=== PATIENT | female | born 1935 | race American Indian/Alaskan Native ===

== ENCOUNTER 2017-03-22 23:11 | Emergency (ER) | payer MEDICARE ==
[2017-03-23 00:06] LABS: Basophils % (Auto) 0.6 % (0.0-1.8); Eosinophils % (Auto) 0.1 % (0.0-4.3); Hematocrit 39.6 % (30.3-42.9); Hemoglobin 12.7 gm/dl (10.1-14.3); Mean Corpuscular HGB Conc 32 % (30-34); Mean Corpuscular Volume 80 fl (79-97); Platelet Count 257 K/mm3 (140-440); Red Blood Count 4.96 M/mm3 (3.65-5.03); Red Cell Distribution Width 14.1 % (13.2-15.2); White Blood Count 11.9 K/mm3 (4.5-11.0)
[2017-03-23 00:08] LABS: Mean Corpuscular Hemoglobin 26 pg (28-32)
[2017-03-23 00:23] LABS: BUN/Creatinine Ratio 21.81; Blood Urea Nitrogen 24 mg/dL (7-17); Calcium 9.5 mg/dL (8.4-10.2); Carbon Dioxide 25 mmol/L (22-30); Chloride 103.9 mmol/L (98-107); Glucose 109 mg/dL (65-100); Potassium 4.5 mmol/L (3.6-5.0); Sodium 142 mmol/L (137-145)
[2017-03-23 00:24] LABS: Anion Gap 18 mmol/L
[2017-03-23 02:34] LABS: Bilirubin,Urine NEG (Negative); Blood,Urine NEG (Negative); Ketones,Urine NEG (Negative); Leukocyte Esterase,Urine MOD (Negative); Mucus,Urine FEW /HPF; Nitrite,Urine NEG (Negative); Protein,Urine <15 mg/dL mg/dL (Negative); Urobilinogen,Urine < 2.0 mg/dL (<2.0)
[2017-03-23] MEDS ORDERED: ULTRAM PO ONE (02:43)
--- NOTE | 2017-03-23 02:43 | Emergency Department Report ---
ED General Adult HPI - General Chief complaint: Dizziness Stated complaint: EYES BLEEDING/LIGHT HEADED/SHARP PAIN IN HEAD Time Seen by Provider: 03/23/17 02:30 Source: patient, RN notes reviewed, old records reviewed Mode of arrival: Ambulatory Limitations: No Limitations - History of Present Illness Initial comments: This is an 81-year-old female. She is previously unknown to me. Her primary care doctor is Dr. Beth Torres The patient presents to the ER with a complaint of bilateral erythema and her conjunctiva, right-sided periorbital ecchymosis, nonspecific headache and dizziness. Patient reports chronic headaches, her headaches today are not new, worsening or different from her typical headaches. She reports that she was stung in her right temporal region by an insect a few days ago, and shortly thereafter developed "bloodshot eyes." Her PCP presumptively diagnosed her with an allergic reaction. The patient denies neck pain, neck stiffness, ataxia , chest pain, shortness of breath, irritative and obstructive urinary symptoms. There is no pain with chewing or swallowing food, and patient describes nonspecific blurry vision, which is chronic, she reports she is not wearing her glasses at this time, but she reports that the headache is not different from her typical headache. Her symptoms have been constant and on and off for the past week, have no exacerbating or relieving factors. -: Gradual Location: head, eyes Radiation: non-radiation Severity scale (0 -10): 4 Consistency: intermittent Improves with: none Worsens with: none Associated Symptoms: headaches. denies: confusion, chest pain, cough, loss of appetite, malaise, shortness of breath, syncope, weakness - Related Data Previous Rx's Medication Instructions Recorded Last Taken Type Butalb/Acetamin/Caff 50-325-40 1 tab PO Q8HR PRN #20 tablet 07/28/16 Unknown Rx [Fioricet] Meclizine [Antivert] 25 mg PO TID PRN #20 tablet 07/28/16 Unknown Rx Ondansetron [Zofran ODT TAB] 8 mg PO Q8HR #20 tab.rapdis 07/28/16 Unknown Rx Sulfamethoxazole/Trimethoprim 1 each PO BID #6 tablet 07/28/16 Unknown Rx [Bactrim DS TAB] traMADol [Ultram 50 MG tab] 50 mg PO Q6HR PRN #14 tablet 03/23/17 Unknown Rx Allergies Allergy/AdvReac Type Severity Reaction Status Date / Time aspirin Allergy Unknown Verified 02/21/16 08:34 ED Review of Systems ROS: Stated complaint: EYES BLEEDING/LIGHT HEADED/SHARP PAIN IN HEAD Other details as noted in HPI Constitutional: malaise. denies: fever Eyes: denies: eye pain ENT: denies: throat pain Respiratory: denies: cough Cardiovascular: denies: chest pain Gastrointestinal: denies: abdominal pain Genitourinary: denies: urgency Musculoskeletal: myalgia Skin: lesions Neurological: headache, weakness Psychiatric: denies: anxiety ED Past Medical Hx - Past Medical History Previous Medical History?: Yes Hx Hypertension: Yes Hx Diabetes: Yes Additional medical history: nervous stomach - Surgical History Past Surgical History?: Yes Additional Surgical History: partial hysterectomy. right knee surgery - Social History Smoking Status: Never Smoker Substance Use Type: Prescribed - Medications Home Medications: Home Medications Medication Instructions Recorded Confirmed Last Taken Type Butalb/Acetamin/Caff 50-325-40 1 tab PO Q8HR PRN #20 tablet 07/28/16 Unknown Rx [Fioricet] Meclizine [Antivert] 25 mg PO TID PRN #20 tablet 07/28/16 Unknown Rx Ondansetron [Zofran ODT TAB] 8 mg PO Q8HR #20 tab.rapdis 07/28/16 Unknown Rx Sulfamethoxazole/Trimethoprim 1 each PO BID #6 tablet 07/28/16 Unknown Rx [Bactrim DS TAB] traMADol [Ultram 50 MG tab] 50 mg PO Q6HR PRN #14 tablet 03/23/17 Unknown Rx ED Physical Exam - General Limitations: No Limitations General appearance: alert, in no apparent distress - Head Head exam: Present: atraumatic, normocephalic, other (no temporal tenderness. no vesicles noted) - Eye Eye exam: Present: PERRL (b/l arcus senilis), EOMI, conjunctival injection, other (visual acuity intact to finger counting, color perception, reading at a close distance). Absent: nystagmus - ENT ENT exam: Present: normal exam, normal orophraynx, mucous membranes moist, normal external ear exam - Neck Neck exam: Present: normal inspection, full ROM - Respiratory Respiratory exam: Present: normal lung sounds bilaterally. Absent: respiratory distress, wheezes, rales, rhonchi, stridor, chest wall tenderness, accessory muscle use, decreased breath sounds, prolonged expiratory - Cardiovascular Cardiovascular Exam: Present: regular rate, normal rhythm, normal heart sounds. Absent: bradycardia, tachycardia, irregular rhythm, systolic murmur, diastolic murmur, rubs, gallop - GI/Abdominal GI/Abdominal exam: Present: soft, normal bowel sounds. Absent: distended, tenderness, guarding, rebound, rigid, pulsatile mass - Extremities Exam Extremities exam: Present: normal inspection, full ROM, normal capillary refill. Absent: pedal edema, joint swelling, calf tenderness - Back Exam Back exam: Present: normal inspection, full ROM. Absent: tenderness, CVA tenderness (R), paraspinal tenderness - Neurological Exam Neurological exam: Present: alert, oriented X3, normal gait (ambulates with a steady gait with a one-person assist. There is no past pointing.), other ( Extraocular movements intact. Tongue midline. No facial droop. Facial sensation intact to light touch in the V1, V2, V3 distribution bilaterally. 5 and 5 strength in 4 extremities.. Sensation is intact to light touch in 4 extremities.). Absent: motor sensory deficit - Psychiatric Psychiatric exam: Present: normal affect, normal mood - Skin Skin exam: Present: warm, dry, intact, normal color. Absent: rash ED Course Vital Signs 03/22/17 03/23/17 03/23/17 23:21 02:09 03:59 Temperature 98.5 F 98.2 F Pulse Rate 74 69 Respiratory 18 14 Rate Blood Pressure 154/75 Blood Pressure 154/75 159/79 [Right] O2 Sat by Pulse 100 99 99 Oximetry 03/23/17 04:35 Temperature Pulse Rate 63 Respiratory 12 Rate Blood Pressure Blood Pressure 157/82 [Right] O2 Sat by Pulse 97 Oximetry ED Medical Decision Making - Lab Data Result diagrams: 03/22/17 23:37 03/22/17 23:37 Vital Signs 03/22/17 03/23/17 03/23/17 23:21 02:09 03:59 Temperature 98.5 F 98.2 F Pulse Rate 74 69 Respiratory 18 14 Rate Blood Pressure 154/75 Blood Pressure 154/75 159/79 [Right] O2 Sat by Pulse 100 99 99 Oximetry 03/23/17 04:35 Temperature Pulse Rate 63 Respiratory 12 Rate Blood Pressure Blood Pressure 157/82 [Right] O2 Sat by Pulse 97 Oximetry Labs 03/22/17 03/22/17 03/23/17 23:37 23:37 02:09 WBC 11.9 H RBC 4.96 Hgb 12.7 Hct 39.6 MCV 80 MCH 26 L MCHC 32 RDW 14.1 Plt Count 257 Lymph % (Auto) 20.7 Clinch % (Auto) 4.9 Eos % (Auto) 0.1 Baso % (Auto) 0.6 Lymph # 2.5 Clinch # 0.6 Eos # 0.0 Baso # 0.1 Seg Neutrophils % 73.7 H Seg Neutrophils # 8.7 H PT INR APTT Sodium 142 Potassium 4.5 Chloride 103.9 Carbon Dioxide 25 Anion Gap 18 BUN 24 H Creatinine 1.1 Estimated GFR 58 BUN/Creatinine Ratio 21.81 Glucose 109 H Calcium 9.5 Magnesium Total Bilirubin Direct Bilirubin Indirect Bilirubin AST ALT Alkaline Phosphatase Total Creatine Kinase Troponin T < 0.010 Total Protein Albumin Albumin/Globulin Ratio TSH Urine Color Yellow Urine Turbidity Clear Urine pH 5.0 Ur Specific [place] 1.021 Urine Protein <15 mg/dl Urine Glucose (UA) Neg Urine Ketones Neg Urine Blood Neg Urine Nitrite Neg Urine Bilirubin Neg Urine Urobilinogen < 2.0 Ur Leukocyte Esterase Mod Urine WBC (Auto) 21.0 H Urine RBC (Auto) 3.0 U Epithel Cells (Auto) 5.0 Hyaline Casts 4 Urine Mucus Few 03/23/17 03/23/17 03/23/17 03:49 03:49 03:49 WBC RBC Hgb Hct MCV MCH MCHC RDW Plt Count Lymph % (Auto) Clinch % (Auto) Eos % (Auto) Baso % (Auto) Lymph # Clinch # Eos # Baso # Seg Neutrophils % Seg Neutrophils # PT 14.0 INR 1.09 APTT 30.2 Sodium Potassium Chloride Carbon Dioxide Anion Gap BUN Creatinine Estimated GFR BUN/Creatinine Ratio Glucose Calcium Magnesium 1.80 Total Bilirubin 0.30 Direct Bilirubin < 0.2 Indirect Bilirubin 0.1 AST 23 ALT 29 Alkaline Phosphatase 99 Total Creatine Kinase 68 Troponin T Total Protein 6.6 Albumin 3.6 L Albumin/Globulin Ratio 1.2 TSH 0.760 Urine Color Urine Turbidity Urine pH Ur Specific [place] Urine Protein Urine Glucose (UA) Urine Ketones Urine Blood Urine Nitrite Urine Bilirubin Urine Urobilinogen Ur Leukocyte Esterase Urine WBC (Auto) Urine RBC (Auto) U Epithel Cells (Auto) Hyaline Casts Urine Mucus - EKG Data -: EKG Interpreted by Me EKG shows normal: sinus rhythm Rate: normal - EKG Data 03/23/17 05:06 Normal sinus, 60 beats per minute, borderline rightward axis, poor R-wave progression, not consistent with STEMI, appears to have nonspecific changes when compared to prior EKG from 2016 - Radiology Data Radiology results: report reviewed, image reviewed interpreted by me: X-ray of the chest is negative Noncontrast CT scan of the brain is negative for acute findings - Medical Decision Making Differential diagnosis: Allergic conjunctivitis, intracranial lesion, migraine headache, tension headache, cluster headache, general medical evaluation Assessment and plan: 81-year-old female with multiple complaints, including bloody eyes/bloody conjunctiva which are atraumatic and associated with a recent insect sting, nonspecific dizziness, nonspecific headache. There is no temporal tenderness. There is no claudication. There is no severe loss of visual acuity. Think temporal arteritis is unlikely. Patient reports chronic headaches. Walks with a one-person assist. Has a GCS of 15, and an NIH score of 0. Urinalysis appreciated, does not have any urinary symptoms, think UTI is unlikely. There does not appear to be any emergent condition at this time, and the patient is medically suitable to follow-up in outpatient scarfer operator and her primary care doctor. Critical care attestation.: If time is entered above; I have spent that time in minutes in the direct care of this critically ill patient, excluding procedure time. ED Disposition Clinical Impression: Headache, Conjunctival injection Disposition: DC-01 TO HOME OR SELFCARE Is pt being admited?: No Does the pt Need Aspirin: No Condition: Stable Additional Instructions: Continue current outpatient medications. Follow-up with your primary care doctor within the next 2 weeks. Follow up with an scarfer operator within the next 3-[address] Mao is a local ophthalmology specialist. Return to the ER right away with new pain, worsened pain, migration of pain, loss of vision, confusion, intractable nausea or vomiting, inability to tolerate liquid feeds. Avoid exposures to stinging insects. Referrals: PRIMARY CARE, [Primary Care Provider] - 3-5 Days ARA MAO MD [Staff Physician] - 3-5 Days BETH TORRES MD [Staff Physician] - 3-5 Days
[2017-03-23 04:20] LABS: INR 1.09 (0.87-1.13)
[2017-03-23 04:21] LABS: Partial Thromboplastin Time 30.2 Sec. (24.2-36.6)
[2017-03-23 04:27] LABS: Alanine Aminotransferase 29 units/L (7-56); Albumin 3.6 g/dL (3.9-5); Albumin/Globulin Ratio 1.2 %; Alkaline Phosphatase 99 units/L (35-129); Creatine Kinase 68 units/L (30-135); Total Protein 6.6 g/dL (6.3-8.2)
[2017-03-23 04:35] LABS: Bilirubin,Direct < 0.2 mg/dL (0-0.2); Bilirubin,Indirect 0.1 mg/dL
[2017-03-23 04:38] VITALS: BP 157/82
--- NOTE | 2017-03-23 05:03 | Cat Scan Report ---
FINAL REPORT PROCEDURE: CT HEAD/BRAIN WO CON TECHNIQUE: Computerized tomography of the head was performed without contrast material. HISTORY: headache COMPARISON: July 28, 2016 FINDINGS: Skull and scalp: Normal. Paranasal sinuses: Normal. Ventricles and subarachnoid spaces: There is moderate central and cortical atrophy. There is no hydrocephalus or asymmetry.. Cerebrum: No evidence of hemorrhage, acute infarction or mass . Cerebellum and brainstem: No evidence of hemorrhage, acute infarction or mass. Vasculature: There is calcified plaque in the cavernous portions of the internal carotid arteries.. Comments: None. IMPRESSION: There is no acute intracranial abnormality.
--- NOTE | 2017-03-23 07:44 | XRay Report ---
ROUTINE CHEST, TWO VIEWS: HISTORY: Dizziness. The trachea, heart, mediastinal contour, lung lowery and bony thorax are unremarkable. IMPRESSION: Unremarkable chest x-ray.
== END 2017-03-23 05:40 | disposition home or self-care (01) ==
LOC: ED 23:11
DX: R51 Headache (principal); I10 Essential (primary) hypertension; E11.9 Type 2 diabetes mellitus without complications
CPT/HCPCS: 36415; 70450; 71020; 80048; 80074; 81001; 82550; 83735; 84443; 84484; 85025; 85610; 85730; 87086; 93005; 93010

== ENCOUNTER 2019-02-06 13:21 | Emergency (ER) | payer MEDICARE ==
--- NOTE | 2019-02-06 13:28 | Emergency Department Report ---
Blank Doc - Documentation Documentation: This is a 83-year-old female that presents with itching and redness and believes was bite by bees. Denies any facial swelling or SOB. Denies any difficulty breathing. This initial assessment/diagnostic orders/clinical plan/treatment(s) is/are subject to change based on patient's health status, clinical progression and re- assessment by fellow clinical providers in the ED. Further treatment and workup at subsequent clinical providers discretion. Patient/guardians urged not to elope from the ED as their condition may be serious if not clinically assessed and managed. Initial orders include: 1- Patient sent to [facility] for further evaluation and treatment
[2019-02-06] MEDS ORDERED: PEPCID IV ONE (13:45)
[2019-02-06] MEDS ORDERED: NACL 0.9% 500 ML 500 ML IV ONE (13:45)
[2019-02-06] MEDS ORDERED: SOLU-Medrol IV ONE (13:45)
[2019-02-06] MEDS ORDERED: BENADRYL IV ONE (13:45)
--- NOTE | 2019-02-06 13:49 | Emergency Department Report ---
ED Allergic Reaction HPI - General Chief complaint: Allergic Reaction Stated complaint: SOB/BEE STINGS ALL OVER BODY/ITCHING Time Seen by Provider: 02/06/19 13:26 Source: patient Mode of arrival: Ambulatory Limitations: No Limitations - History of Present Illness Initial Comments: Patient is a 83 years old female with history of congestive heart failure, hypertension and diabetes. Patient presented to the ER complaining of allergic reaction. Patient stated that she was stung by a bee approximately 2 hours ago. Patient is complaining of generalized itching. Patient denied any shortness of breath, difficulty swallowing or difficulty breathing. No facial swelling or lip swelling. MD Complaint: allergic reaction, hives -: hour(s) (2) Exposure: insect bite Symptoms: itching. denies: facial swelling, lip swelling, difficulty swallowing, difficulty breathing, orolingual swelling, hoarseness, syncopy, dizziness Treatment Prior to Arrival: none - Related Data Previous Rx's Medication Instructions Recorded Last Taken Type Butalb/Acetamin/Caff 50-325-40 1 tab PO Q8HR PRN #20 tablet 07/28/16 Unknown Rx [Fioricet] Meclizine [Antivert] 25 mg PO TID PRN #20 tablet 07/28/16 Unknown Rx Ondansetron [Zofran ODT TAB] 8 mg PO Q8HR #20 tab.rapdis 07/28/16 Unknown Rx Sulfamethoxazole/Trimethoprim 1 each PO BID #6 tablet 07/28/16 Unknown Rx [Bactrim DS TAB] traMADol [Ultram 50 MG tab] 50 mg PO Q6HR PRN #14 tablet 03/23/17 Unknown Rx Allergies Allergy/AdvReac Type Severity Reaction Status Date / Time aspirin Allergy Unknown Verified 02/21/16 08:34 ED Review of Systems ROS: Stated complaint: SOB/BEE STINGS ALL OVER BODY/ITCHING Other details as noted in HPI Comment: All other systems reviewed and negative Constitutional: denies: chills, fever Respiratory: denies: cough, shortness of breath, SOB with exertion Gastrointestinal: denies: abdominal pain, nausea, vomiting, diarrhea, constipation, hematemesis, melena, hematochezia Musculoskeletal: denies: back pain Neurological: denies: headache, weakness, numbness, paresthesias, confusion ED Past Medical Hx - Past Medical History Hx Hypertension: Yes Hx Diabetes: Yes Additional medical history: nervous stomach - Surgical History Additional Surgical History: partial hysterectomy. right knee surgery - Social History Smoking Status: Never Smoker Substance Use Type: None - Medications Home Medications: Home Medications Medication Instructions Recorded Confirmed Last Taken Type Butalb/Acetamin/Caff 50-325-40 1 tab PO Q8HR PRN #20 tablet 07/28/16 Unknown Rx [Fioricet] Meclizine [Antivert] 25 mg PO TID PRN #20 tablet 07/28/16 Unknown Rx Ondansetron [Zofran ODT TAB] 8 mg PO Q8HR #20 tab.rapdis 07/28/16 Unknown Rx Sulfamethoxazole/Trimethoprim 1 each PO BID #6 tablet 07/28/16 Unknown Rx [Bactrim DS TAB] traMADol [Ultram 50 MG tab] 50 mg PO Q6HR PRN #14 tablet 03/23/17 Unknown Rx ED Physical Exam - General Limitations: No Limitations General appearance: alert, in no apparent distress - Head Head exam: Present: atraumatic, normocephalic, normal inspection - Eye Eye exam: Present: normal appearance - ENT ENT exam: Present: normal exam, normal orophraynx, mucous membranes moist - Neck Neck exam: Present: normal inspection, full ROM. Absent: tenderness, meningismus, lymphadenopathy, thyromegaly - Respiratory Respiratory exam: Present: normal lung sounds bilaterally - Cardiovascular Cardiovascular Exam: Present: regular rate, normal rhythm, normal heart sounds - GI/Abdominal GI/Abdominal exam: Present: soft, normal bowel sounds. Absent: distended, tenderness, guarding, rebound, rigid, organomegaly, mass, bruit, pulsatile mass, hernia - Extremities Exam Extremities exam: Present: normal inspection, full ROM, normal capillary refill. Absent: pedal edema, calf tenderness - Back Exam Back exam: Present: normal inspection, full ROM. Absent: tenderness, CVA tenderness (R), CVA tenderness (L), muscle spasm, paraspinal tenderness, vertebral tenderness - Neurological Exam Neurological exam: Present: alert, oriented X3, CN II-XII intact, normal gait, reflexes normal - Skin Skin exam: Present: warm, intact, normal color ED Course Vital Signs 02/06/19 13:25 Temperature 98.3 F Pulse Rate 66 Respiratory 16 Rate Blood Pressure 132/73 O2 Sat by Pulse 97 Oximetry ED Medical Decision Making - Medical Decision Making Patient is a 83 years old female with history of congestive heart failure, hypertension and diabetes. Patient presented to the ER complaining of allergic reaction. Patient stated that she was stung by a bee approximately 2 hours ago. Patient is complaining of generalized itching. Patient denied any shortness of breath, difficulty swallowing or difficulty breathing. No facial swelling or lip swelling. Patient received Benadryl, Pepcid and Solu-Medrol. Patient stated that she is feeling much better. No more itching. No difficulty breathing or difficulty swallowing. Patient observed in the ER was no any sign of distress. Patient discharged home in stable clinical condition. Patient advised to follow-up with her primary care physician in the next 2-3 days and to return to the ER if symptoms are not improved Critical care attestation.: If time is entered above; I have spent that time in minutes in the direct care of this critically ill patient, excluding procedure time. ED Disposition Clinical Impression: Allergic reaction Disposition: DC-01 TO HOME OR SELFCARE Is pt being admited?: No Condition: Stable Instructions: Insect Bite or Sting (ED) Referrals: BETH TORRES MD [Primary Care Provider] - 3-5 Days
[2019-02-06 17:08] VITALS: BP 136/97
== END 2019-02-06 17:08 | disposition home or self-care (01) ==
LOC: ED 13:21
DX: T63.441A Toxic effect of venom of bees, accidental (unintentional), initial encounter (principal); I11.0 Hypertensive heart disease with heart failure; I50.9 Heart failure, unspecified; E11.9 Type 2 diabetes mellitus without complications; Z88.6 Allergy status to analgesic agent; Z90.711 Acquired absence of uterus with remaining cervical stump; Y92.89 Other specified places as the place of occurrence of the external cause
CPT/HCPCS: 96374; 96375; 99282; J1200; J2930; J7040

== ENCOUNTER 2019-02-17 12:40 | Emergency (ER) | payer MEDICARE ==
[2019-02-17 14:10] VITALS: BP 126/73
--- NOTE | 2019-02-17 14:11 | Event Note ---
ED Screening Note Date of service: 02/17/19 Time: 14:02 ED Screening Note: 83 y/o female fell in the garden [facility] at [facility] on Sunday evening comes in compiling of right knee, left elbow left shoulder and left hand Chest pain that started last night. Dull pressure pain relieved by lifting her breast. SOB with walking. This initial assessment/diagnostic orders/clinical plan/treatment(s) is/are subject to change based on patients health status, clinical progression and re- assessment by fellow clinical providers in the ED. Further treatment and workup at subsequent clinical providers discretion. Patient/guardian urged not to elope from the ED as their condition may be serious if not clinically assessed and managed. Initial orders include:
--- NOTE | 2019-02-17 14:29 | XRay Report ---
RIGHT KNEE, 3 views: History: Fall with new pain. Mild osteopenia is noted. Mild osteoarthritic changes are identified in all 3 compartments. There is subtle calcinosis of the lateral meniscus. No evidence for displaced fracture or bone lesion. A moderate joint effusion is identified on the lateral image. IMPRESSION: Osteopenia. Mild osteoarthritis. Moderate joint effusion. No acute bony injury is appreciated.
--- NOTE | 2019-02-17 14:30 | XRay Report ---
CHEST XRAY, 2 VIEWS: History: Chest pain. Findings: There is mild cardiomegaly. Pulmonary vessels are within normal limits. The lungs are clear and fully expanded. No infiltrate, pleural effusion or pneumothorax. Normal thoracic cage. IMPRESSION: Mild cardiomegaly. Lungs clear.
[2019-02-17] MEDS ORDERED: IBUPROFEN PO ONE (16:48)
--- NOTE | 2019-02-17 16:50 | Emergency Department Report ---
ED Back Pain/Injury HPI - General Chief Complaint: Fall Stated Complaint: shoulder and knee pain sp fall Time Seen by Provider: 02/17/19 16:46 Source: patient Limitations: No Limitations - History of Present Illness Initial Comments: Pt tells provider she fell at [facility] on Sunday on a wet floor. complaining of right knee pain and left shoulder and elbow pain. She has taken nothing prior to coming to ER. VSS. full ROM. ambulatory and in NAD. Family wanted her to be checked. - Related Data Previous Rx's Medication Instructions Recorded Last Taken Type Famotidine [Pepcid] 40 mg PO QHS #5 tablet 02/06/19 Unknown Rx Ibuprofen [Motrin 200 MG tab] 200 mg PO Q8H PRN #20 tablet 02/17/19 Unknown Rx Allergies Allergy/AdvReac Type Severity Reaction Status Date / Time aspirin Allergy Unknown Verified 02/17/19 12:41 ED Review of Systems ROS: Stated complaint: CHEST PAIN Other details as noted in HPI Comment: All other systems reviewed and negative ED Past Medical Hx - Past Medical History Medical history: CHF, hypertension nervous stomach Family history: no significant family history ED Back Pain Physical Exam - Exam General: Vital signs noted. No distress. Alert and acting appropriately. neurovasc intact alert/oriented s1s2 lungs cta abd snt Back/Abdomen: No Abdominal Tenderness, No Perithoracic Tenderness, No Perilumbar Tenderness, No Sacroiliac Tenderness, No Flank Tenderness, No Straight Leg Raise Pain Neuro: Yes Normal Sensation, Yes Normal DTR's, Yes Normal Gait, No Motor Weakness ED Course Vital Signs 02/17/19 14:09 Temperature 97.7 F Pulse Rate 69 Respiratory 18 Rate Blood Pressure 126/73 O2 Sat by Pulse 99 Oximetry Ed Back Pain Tests - Tests Tests: Normal X Rays ED Medical Decision Making - Radiology Data Radiology results: report reviewed, image reviewed - Medical Decision Making xrays noted Vital Signs 02/17/19 14:09 Temperature 97.7 F Pulse Rate 69 Respiratory 18 Rate Blood Pressure 126/73 O2 Sat by Pulse 99 Oximetry dc home with dc plan of care. Critical care attestation.: If time is entered above; I have spent that time in minutes in the direct care of this critically ill patient, excluding procedure time. ED Disposition Clinical Impression: Contusion, Fall from ground level Disposition: DC-01 TO HOME OR SELFCARE Is pt being admited?: No Does the pt Need Aspirin: No Condition: Stable Instructions: Contusion in Adults (ED) Additional Instructions: DIET TOLERATED MEDS ORDERED TODAY IN ER FOLLOW INSTRUCTIONS ON THE BOTTLE FOLLOW UP PCP WITHIN 48 HOURS TO ENSURE YOU ARE GETTING BETTER ACTIVITY TOLERATED MOTRIN OR TYLENOL FOR PAIN OR FEVER RETURN TO THE ER FOR WORSENING SYMPTOMS NOT RELIEVED BY YOUR MEDICATIONS. follow up with Dr Torres should you continue to have problems Prescriptions: Ibuprofen [Motrin 200 MG tab] 200 mg PO Q8H PRN #20 tablet PRN Reason: Pain , Severe (7-10) Referrals: BETH TORRES MD [Primary Care Provider] - 3-5 Days BETH SAXENA MD [Staff Physician] - 3-5 Days Time of Disposition: 16:47
[2019-02-17] MEDS ORDERED: MOTRIN ONE (16:55)
== END 2019-02-17 16:58 | disposition home or self-care (01) ==
LOC: ED 12:40
DX: S80.01XA Contusion of right knee, initial encounter (principal); S40.012A Contusion of left shoulder, initial encounter; S50.02XA Contusion of left elbow, initial encounter; W01.0XXA Fall on same level from slipping, tripping and stumbling without subsequent striking against object, initial encounter; Y93.89 Activity, other specified; Y92.89 Other specified places as the place of occurrence of the external cause; Y99.8 Other external cause status
CPT/HCPCS: 71046; 93005; 93010; 99283